=== PATIENT | female | born 1985 | race Two or more races ===

== ENCOUNTER 2019-01-10 04:33 | Emergency (ER) | payer MEDICAID, OTHER ==
[~2019-01-10] VITALS: Ht 152.4 cm; Wt 54.3 kg
[2019-01-10 04:37] VITALS: BP 109/77
[2019-01-10] MEDS ORDERED: ONDANSETRON ODT 4 MG ONE (05:25)
[2019-01-10] MEDS ORDERED: ONDANSETRON ODT 4 MG PO ONE (05:30)
[2019-01-10 05:38] LABS: MICROSCOPIC INDICATED
[2019-01-10 05:45] LABS: CULTURE INDICATED? YES
--- NOTE | 2019-01-10 05:48 | NUR ---
PT PLACED IN [facility]. PT BACK FROM RAD. LABS DRAWN. URINE SENT TO LAB, PT MEDICATED PER EMAR.
[2019-01-10 05:56] LABS: BASOPHILS # (AUTO) 0.04 x10^3/uL (0-0.1); BASOPHILS % (AUTO) 1 % (0-1); EOSINOPHILS % (AUTO) 0 % (1-7); LYMPHOCYTES # (AUTO) 1.05 x10^3/uL (1-3.4); LYMPHOCYTES % (AUTO) 27 % (22-44); MD NO; MEAN CORPUSCULAR HEMOGLOBIN 27.7 pg (27.0-34.8); MEAN CORPUSCULAR HGB CONC 33.2 g/dL (32.4-35.8); MEAN CORPUSCULAR VOLUME 83.4 fL (80-100); MEAN PLATELET VOLUME 8.8 fL (7.4-10.4); MONOCYTES # (AUTO) 0.34 x10^3/uL (0.2-0.8); MONOCYTES % (AUTO) 9 % (2-9); NEUTROPHILS # (AUTO) 2.53 x10^3/uL (1.8-6.8); NEUTROPHILS % (AUTO) 64 % (42-75); PLATELET COUNT 165 x10^3/uL (130-400); RED BLOOD COUNT 4.11 x10^6/uL (3.82-5.3)
[2019-01-10 06:07] LABS: ALBUMIN 3.6 g/dL (3.4-5.0); ANION GAP 7 mmol/L (5-15); CALCIUM 8.5 mg/dL (8.5-10.1); CHLORIDE 106 mmol/L (98-107)
[2019-01-10 06:12] LABS: ALANINE AMINOTRANSFERASE 26 U/L (12-78); ALKALINE PHOSPHATASE 60 U/L (45-117); BILIRUBIN,TOTAL 0.3 mg/dL (0.2-1.0); CREATININE 0.89 mg/dL (0.55-1.02); TOTAL PROTEIN 7.1 g/dL (6.4-8.2)
== END 2019-01-10 06:31 | disposition home or self-care (01) ==
LOC: ED 05:29
DX: J11.2 Influenza due to unidentified influenza virus with gastrointestinal manifestations (principal)
CPT/HCPCS: 36415; 71046; 80053; 81001; 84702; 85025; 87086; 99284; Q0162

== ENCOUNTER 2019-05-14 17:11 | Emergency (ER) | payer MEDICAID ==
[~2019-05-14] VITALS: Ht 160 cm; Wt 53.3 kg
[2019-05-14 20:41] VITALS: BP 102/62
== END 2019-05-14 20:43 | disposition home or self-care (01) ==
LOC: ED 20:08
DX: N93.8 Other specified abnormal uterine and vaginal bleeding (principal); N80.0 Endometriosis of uterus
CPT/HCPCS: 36415; 76830; 80053; 81001; 84702; 85025; 87086; 99284